=== PATIENT | female | born 1940 | race Caucasian/White ===

== ENCOUNTER 2024-01-28 10:31 | Day surgery (SDC) | payer MEDICARE, OTHER ==
[~2024-01-28] VITALS: Ht 162.6 cm; Wt 63.6 kg
[~2024-01-28 10:31] MED LIST: AMLO-379 PO; ASCO100031 PO; CHOL100046 PO; IODI150T PO; OMEG-166 PO; SACC250C9 PO; VALS160T30 PO
[2024-01-28 11:01] VITALS: BP 145/58; PULSE 72; RESP 16
[2024-01-28] MEDS ORDERED: MIDAZolam 1 MG/ML 5ML VIAL ONE (11:08)
[2024-01-28] MEDS ORDERED: diphenhydrAMINE 50 mg/ml inj ONE (11:08)
[2024-01-28] MEDS ORDERED: fentaNYL/PF 50MCG/1 ML 2ML syringe ONE (11:08)
[2024-01-28 11:43] VITALS: BP 120/55; PULSE 52; RESP 21; O2SAT 97
[2024-01-28 11:53] VITALS: BP 130/59; PULSE 52; RESP 19; O2SAT 97
[2024-01-28 12:03] VITALS: BP 125/55; PULSE 52; RESP 20; O2SAT 97
[2024-01-28 12:13] VITALS: BP 125/57; PULSE 62; RESP 17; O2SAT 98
== END 2024-01-28 12:30 | disposition home or self-care (01) ==
LOC: GI LAB 10:31
PROVIDERS: ATTEND Internal Medicine Gastroenterology
DX: K52.9 Noninfective gastroenteritis and colitis, unspecified (principal); D12.5 Benign neoplasm of sigmoid colon
CPT/HCPCS: 45380; 45385; A4620; C1889; G0500; J1200; J2250; J3010; J7030; Z7512; 88305; 99152